=== PATIENT | female | born 1935 | race Caucasian/White ===

== ENCOUNTER → 2016-12-07 | Outpatient (CLI) | payer MEDICARE | END | disposition home or self-care (01) | LOC: PCVCCLINIC 13:00 | PROVIDERS: ATTEND Internal Medicine Cardiovascular Disease | DX: E78.00 Pure hypercholesterolemia, unspecified (principal); I25.10 Atherosclerotic heart disease of native coronary artery without angina pectoris; I70.1 Atherosclerosis of renal artery; I10 Essential (primary) hypertension | CPT/HCPCS: 80061; 93005; G0463 ==

== ENCOUNTER → 2017-06-07 | Outpatient (CLI) | payer MEDICARE ==
--- NOTE | 2017-06-07 11:54 | PCVCIMAG ---
EXAM: BILATERAL RENAL ULTRASOUND AND BILATERAL RENAL DUPLEX INDICATION: Hypertension FINDINGS: Right kidney: Length measures 8.9 cm. No hydronephrosis or extensive renal scarring. Right renal duplex: Adequate technical quality. No sonographic evidence of renal artery stenosis. The aortic to renal artery ratio is 3.0. The renal vein is patent. Left kidney: Length measures 10.2 cm. No hydronephrosis or extensive renal scarring. Left renal duplex: Adequate technical quality. 80% proximal renal artery stenosis. The aortic to renal artery ratio is 7.1. The renal vein is patent. Bladder: No obvious abnormalities. IMPRESSION: No significant right renal artery stenosis. 80% proximal left renal artery stenosis has worsened since 2015 study. LOC:[id number]
--- NOTE | 2017-06-07 17:09 | PCVCIMAG ---
APPROVED REPORT Exam: Stress Echocardiogram Indication: CAD , Hypertension, Hyperlipidemia Patient Location: Echo lab Stress Nurse: Suzi Verdin RN Status: routine HR: 69 bpm Procedure The patient underwent an Exercise Stress Test using the Radu Protocol. Blood pressure, heart rate, and EKG were monitored. An Echocardiogram was performed by fire technician in four stages in quad fashion. At peak stress, four selected images were obtained and placed side by side with resting images for comparison. Stress Test Details Stress Test: Exercise stress testing was performed using a Radu protocol. HR Resting HR: 69 bpmMax Heart Rate (APMHR): 141 bpm Max HR Achieved: 137 bpmTarget HR (85% APMHR): 119 bpm % of APMHR: 97 BP Resting BP: 121/67 mmHg Recovery BP: 128/64 mmHg ECG Resting ECG: Sinus Rhythm Clinical Reason for Termination: Dyspnea Stress Symptoms: Dyspnea Exercise duration: 3 min 55 sec Highest Stage Achieved: Stage 1: 1.7 mph at 10% grade. Exercise capacity: 6.8 METs Overall Exercise Capacity for Age: Poor Scale: Active Pre-Stress Echo The resting Echocardiogram showed normal left ventricular contractility with an estimated Ejection Fraction of about 50-55%. Post-Stress Echo The stress Echocardiogram showed normal left ventricular contractility with an estimated Ejection Fraction of about 55-60%. Conclusion Clinical Response: Non-ischemic Exercise Capacity: Below Average Stress ECG Response: Non-ischemic Stress Echo Images: Non-ischemic Other Information Study Quality: Good
== END | disposition home or self-care (01) ==
LOC: PCVCIMAG 10:16
PROVIDERS: ATTEND Internal Medicine Cardiovascular Disease
DX: I70.1 Atherosclerosis of renal artery (principal); I25.10 Atherosclerotic heart disease of native coronary artery without angina pectoris; I10 Essential (primary) hypertension; E78.00 Pure hypercholesterolemia, unspecified; E78.5 Hyperlipidemia, unspecified
CPT/HCPCS: 76770; 93325; 93351; 93975

== ENCOUNTER → 2018-10-02 | Outpatient (CLI) | payer MEDICARE ==
--- NOTE | 2018-10-02 11:25 | PCVCIMAG ---
EXAM: BILATERAL RENAL ULTRASOUND AND BILATERAL RENAL DUPLEX INDICATION: Hypertension FINDINGS: Right kidney: Length measures 8.6 cm. No hydronephrosis or extensive renal scarring. Right renal duplex: Adequate technical quality. No sonographic evidence of renal artery stenosis. The aortic to renal artery ratio is 2.1. The renal vein is patent. Left kidney: Length measures 9.0 cm. No hydronephrosis or extensive renal scarring. Left renal duplex: Adequate technical quality. 40-50% proximal renal artery stenosis. The aortic to renal artery ratio is 2.6. The renal vein is patent. Bladder: No obvious abnormalities. IMPRESSION: No right renal artery stenosis. 40-50% stenosis proximal left renal artery. These findings are less severe compared to December 2017. LOC:[id number]
--- NOTE | 2018-10-02 12:55 | PCVCIMAG ---
APPROVED REPORT Study performed: 10/02/2018 11:20:15 Exam: Stress Echocardiogram Indication: CAD, renal stenosis, dyspnea, htn Patient Location: Echo lab Stress Nurse: Suzi Verdin RN Status: routine Ht: 5 ft 0 in HR: 70 bpm BP: 140/70 mmHg Rhythm: NSR Procedure The patient underwent an Exercise Stress Test using the Radu Protocol. Blood pressure, heart rate, and EKG were monitored. An Echocardiogram was performed by physics technician in four stages in quad fashion. At peak stress, four selected images were obtained and placed side by side with resting images for comparison. Stress Test Details Stress Test: Exercise stress testing was performed using a Radu protocol. HR Resting HR: 70 bpmMax Heart Rate (APMHR): 139 bpm Max HR Achieved: 141 bpmTarget HR (85% APMHR): 118 bpm % of APMHR: 101 Recovery HR: 68 bpm HR response to stress: Normal HR response to stress BP Resting BP: 140/70 mmHg Max BP: 166/70 mmHg Recovery BP: 146/70 mmHg ECG Resting ECG: Sinus Rhythm Stress ECG: Sinus Rhythm ST Change: non-specific ST changes Arrhythmia: occasional couplet, triplet PVCs, and frequent PACs Recovery ECG: Sinus Rhythm Recovery Arrhythmia: frequent PACs Clinical Reason for Termination: Maximal effort, Dyspnea Stress Symptoms: Dyspnea Exercise duration: 4 min 5 sec Highest Stage Achieved: Stage 2: 2.5 mph at 12% grade. Exercise capacity: 7 METs Overall Exercise Capacity for Age: Poor Angina Score: None Pre-Stress Echo The resting Echocardiogram showed normal left ventricular contractility with an estimated Ejection Fraction of about >55%. Normal wall motion in all segments on baseline images. Post-Stress Echo The stress Echocardiogram showed normal left ventricular contractility with an estimated Ejection Fraction of about 65%. Normal augmentation of wall motion in all segments on post stress images. Clinical No clinical or ECG evidence for ischemia. Conclusion Clinical Response: Non-ischemic Exercise Capacity: Average Stress ECG Response: Non-ischemic Stress Echo Images: Non-ischemic The left ventricle is normal in size and wall thickness in both the rest and stress images. Submaximal duration of exam due to dyspnea. Other Information Study Quality: Adequate <Conclusion> The left ventricle is normal in size and wall thickness in both the rest and stress images. Submaximal duration of exam due to dyspnea.
== END | disposition home or self-care (01) ==
LOC: PCVCIMAG 10:04
PROVIDERS: ATTEND Internal Medicine Cardiovascular Disease
DX: I10 Essential (primary) hypertension (principal); I25.10 Atherosclerotic heart disease of native coronary artery without angina pectoris; I70.1 Atherosclerosis of renal artery
CPT/HCPCS: 76770; 93325; 93351; 93975

== ENCOUNTER → 2019-07-05 | Outpatient (CLI) | payer MEDICARE ==
--- NOTE | 2019-07-05 12:13 | PCVCIMAG ---
EXAM: BILATERAL CAROTID DUPLEX INDICATION: Syncope FINDINGS: Doppler Measurements (centimeters per second): RIGHT: Peak CCA-68, Peak ECA-93, Diastolic ICA-30, Peak ICA-106, ICA/CCA Ratio-1.6. LEFT: Peak CCA-91, Peak ECA-77, Diastolic ICA-25, Peak ICA-94, ICA/CCA Ratio-1.0. RIGHT CAROTID: The carotid bulb has moderate plaque. The proximal internal carotid artery shows <40% stenosis. The common carotid artery shows no significant stenosis. The external carotid artery shows no significant stenosis. LEFT CAROTID: The carotid bulb has moderate plaque. The proximal internal carotid artery shows <40% stenosis. The common carotid artery shows no significant stenosis. The external carotid artery shows no significant stenosis. Antegrade flow in both vertebral arteries. IMPRESSION: <40% stenosis of the right internal carotid artery with moderate plaque. <40% stenosis of the left internal carotid artery with moderate plaque. LOC:[id number]
== END | disposition home or self-care (01) ==
LOC: PCVCIMAG 11:31
PROVIDERS: ATTEND Internal Medicine Cardiovascular Disease
DX: I65.23 Occlusion and stenosis of bilateral carotid arteries (principal); I25.10 Atherosclerotic heart disease of native coronary artery without angina pectoris; R00.1 Bradycardia, unspecified; R94.31 Abnormal electrocardiogram [ECG] [EKG]; I10 Essential (primary) hypertension; E78.00 Pure hypercholesterolemia, unspecified; I70.1 Atherosclerosis of renal artery; Z79.82 Long term (current) use of aspirin; Z87.891 Personal history of nicotine dependence; Z88.8 Allergy status to other drugs, medicaments and biological substances; Z79.899 Other long term (current) drug therapy
CPT/HCPCS: 36415; 80061; 93005; 93880; G0463